=== PATIENT | male | born 1965 | race Caucasian/White ===

== ENCOUNTER 2017-11-13 16:18 | Inpatient (IN) | payer OTHER ==
[~2017-11-13] VITALS: Ht 180.3 cm; Wt 250.4 kg
[2017-12-18] VITALS (11 sets, daily range): BP systolic 102–135; BP diastolic 51–82; PULSE 52–76; TEMP 97.8–98
[2017-12-18] MEDS ORDERED: ABILIFY5 MG PO (06:10)
[2017-12-18] MEDS ORDERED: NORVASC2.5 MG PO (06:10)
[2017-12-18] MEDS ORDERED: VALIUM 2MG T2 MG/TAB PO (06:11)
[2017-12-18] MEDS ORDERED: SARAFEM10 MG PO (06:12)
[2017-12-18] MEDS ORDERED: FLONASEALLERGY NS (06:12)
[2017-12-18] MEDS ORDERED: ATARAX50 MG PO (06:13)
[2017-12-18] MEDS ORDERED: CLARITIN REDITA10 MG PO (06:14)
[2017-12-18] MEDS ORDERED: HYSINGLA20 PO (06:14)
[2017-12-18] MEDS ORDERED: PRIL40 PO (06:15)
[2017-12-18] MEDS ORDERED: PROZAC 10MG10 MG PO (06:15)
[2017-12-18] MEDS ORDERED: AMBIEN CR6.25 MG PO (06:16)
[2017-12-18] MEDS ORDERED: TOPAMAX15 MG PO (06:16)
[2017-12-18] MEDS ORDERED: CARAFATE 1GM1 G PO (06:17)
[2017-12-19 03:44] VITALS: BP 115/76; PULSE 66; TEMP 98
[2017-12-19 07:00] VITALS: BP 119/66; PULSE 66; TEMP 97.7
[2017-12-19 07:18] LABS: HEMOGLOBIN 11.8 g/dl (13.5-18.0)
[2017-12-19 07:19] LABS: HEMATOCRIT 35.9 % (42.0-52.0)
[2017-12-19] MEDS ORDERED: TOPAMAX200 MG PO (08:05)
[2017-12-19 11:12] VITALS: BP 126/73; PULSE 78; TEMP 98.7
[2017-12-19 15:44] VITALS: BP 123/73; PULSE 77; TEMP 99.1
== END 2017-12-19 17:10 | disposition home or self-care (01) | DRG 470 ==
LOC: JCC 12-18 05:14
PROVIDERS: Orthopaedic Surgery Sports Medicine
PROC: 0SRC0J9 Replacement of Right Knee Joint with Synthetic Substitute, Cemented, Open Approach (ICD-10-PCS; principal; 2017-12-18 07:30)
DX: M17.11 Unilateral primary osteoarthritis, right knee (principal); I25.10 Atherosclerotic heart disease of native coronary artery without angina pectoris; I11.0 Hypertensive heart disease with heart failure; M06.9 Rheumatoid arthritis, unspecified
CPT/HCPCS: A9284; C1713; C1776; J0690; J1100; J1170; J2250; J2405; J2704; J2795; J3010; J7120

== ENCOUNTER → 2017-12-05 | Outpatient (CLI) | payer OTHER | LOC: COL.LAB 10:15 | DX: Z01.812 Encounter for preprocedural laboratory examination (principal) ==

== ENCOUNTER 2018-02-21 10:52 | Day surgery (SDC) | payer OTHER ==
[~2018-02-21] VITALS: Ht 180.3 cm; Wt 118.9 kg
[~2018-02-21 10:52] MED LIST: ABILIFY 10MG TA10 MG PO; AMBIEN CR6.25 MG PO; ATARAX50 MG PO; CARAFATE 1GM1 G PO; CLARITIN REDITA10 MG PO; FLONASEALLERGY NS; HYSINGLA20 PO; NORVASC 10MG10 MG PO; PRIL40 PO; PROZAC 20MG20 MG PO; SARAFEM10 MG PO; TOPAMAX15 MG PO; TOPAMAX200 MG PO; VALIUM 2MG T2 MG/TAB PO
[2018-02-21] MEDS ORDERED: VALIUM 2MG T2 MG/TAB PO (11:28)
[2018-02-21] MEDS ORDERED: FLOVENT DI50 MCG/Act IH (11:29)
[2018-02-21 11:31] VITALS: BP 128/89; PULSE 80; TEMP 98.4
[2018-02-21] MEDS ORDERED: NORCO 325 MG-51 TAB PO (11:31)
[2018-02-21] MEDS ORDERED: AMBIEN 10MG10 MG PO (11:34)
[2018-02-21] MEDS ORDERED: COLACE 100100 MG/CAP PO (15:40)
[2018-02-21] MEDS ORDERED: NORCO 325 MG-7.1 TAB PO (15:40)
[2018-02-21 15:45] VITALS: BP 124/88; PULSE 94; TEMP 97.1
[2018-02-21 16:00] VITALS: BP 124/91; PULSE 89
[2018-02-21 16:15] VITALS: BP 124/70; PULSE 90
== END 2018-02-21 16:43 | disposition home or self-care (01) ==
LOC: SDCO 10:52
DX: K40.90 Unilateral inguinal hernia, without obstruction or gangrene, not specified as recurrent (principal); D17.6 Benign lipomatous neoplasm of spermatic cord; E78.5 Hyperlipidemia, unspecified; F32.9 Major depressive disorder, single episode, unspecified; I25.10 Atherosclerotic heart disease of native coronary artery without angina pectoris; J30.9 Allergic rhinitis, unspecified; M19.90 Unspecified osteoarthritis, unspecified site; R73.01 Impaired fasting glucose; E23.0 Hypopituitarism; E66.01 Morbid (severe) obesity due to excess calories; F41.0 Panic disorder [episodic paroxysmal anxiety]; I10 Essential (primary) hypertension; G47.30 Sleep apnea, unspecified; I25.2 Old myocardial infarction; K21.9 Gastro-esophageal reflux disease without esophagitis; F43.10 Post-traumatic stress disorder, unspecified; Z79.51 Long term (current) use of inhaled steroids; Z96.651 Presence of right artificial knee joint; Z88.8 Allergy status to other drugs, medicaments and biological substances; Z80.0 Family history of malignant neoplasm of digestive organs
CPT/HCPCS: A4314; C1781; J0690; J1100; J1885; J2405; J2704; J3010; J7120

== ENCOUNTER 2020-07-28 00:02 | Emergency (ER) | payer OTHER ==
[~2020-07-28] VITALS: Ht 180.3 cm; Wt 104.5 kg
[~2020-07-28 00:02] MED LIST changes: +AMBIEN 10MG10 MG PO; +COLACE 100100 MG/CAP PO; +FLOVENT DI50 MCG/Act IH; +NORCO 325 MG-51 TAB PO; +NORCO 325 MG-7.1 TAB PO
[2020-07-28 00:30] LABS: BASO % 0.4 % (0.0-2.0); EOS # 0.1 (0.0-0.7); EOS % 1.1 % (0-4.0); GRAN # 4.5 (1.4-6.5); GRAN % 61.7 % (42.2-75.2); HEMATOCRIT 41.1 % (42.0-52.0); HEMOGLOBIN 13.3 g/dl (13.5-18.0); LYMPH # 2.1 (1.2-3.4); MEAN CELL VOLUME 91 fl (80.0-100.0); MEAN CORPUSCULAR HEMOGLOBIN 29 pg (27.0-31.0); MEAN CORPUSCULAR HGB CONC 32 g/dl (33.0-37.0); MEAN PLATELET VOLUME 8.9 fl (7.4-10.4); MONO # 0.6 (0.1-0.6); MONO % 7.5 % (1.7-9.3); PLATELET COUNT 224 K/mm3 (130-400); RED BLOOD COUNT 4.53 M/mm3 (4.20-5.60)
[2020-07-28 00:46] LABS: ALANINE AMINOTRANSFERASE 18 U/L (4-49); ALBUMIN 3.8 gm/dL (3.5-5.0); ALKALINE PHOSPHATASE 106 U/L (50-136); ANION GAP 3 mmol/L (7-16); AST,SGOT 23 U/L (15-37); BILIRUBIN,TOTAL 0.2 mg/dL (0.0-1.0); BLOOD UREA NITROGEN 24 mg/dL (9-20); CALCIUM 9.6 mg/dL (8.4-10.2); CARBON DIOXIDE 29 mmol/L (22-30); CHLORIDE 107 mmol/L (98-107); CREATININE, serum 1.39 (0.66-1.25); GLUCOSE 79 mg/dL (74-106); SODIUM 138 mmol/L (137-145); TOTAL PROTEIN 6.6 gm/dL (6.4-8.2)
[2020-07-28 00:52] LABS: POTASSIUM 2.9 mmol/L (3.4-5.0)
[2020-07-28 00:59] LABS: TROPONIN-I < 0.012 ng/mL (0.000-0.035)
[2020-07-28 01:05] VITALS: TEMP 97.5
[2020-07-28 01:50] VITALS: BP 116/75; PULSE 65
== END 2020-07-28 01:58 | disposition home or self-care (01) ==
LOC: COL.ER 00:02
PROVIDERS: Emergency Medicine
DX: I95.1 Orthostatic hypotension (principal); I25.10 Atherosclerotic heart disease of native coronary artery without angina pectoris; I10 Essential (primary) hypertension; F31.9 Bipolar disorder, unspecified; F43.10 Post-traumatic stress disorder, unspecified; Z98.84 Bariatric surgery status; Z88.8 Allergy status to other drugs, medicaments and biological substances; Z79.899 Other long term (current) drug therapy
CPT/HCPCS: J7030

== ENCOUNTER 2020-10-19 20:34 | Emergency (ER) | payer OTHER ==
[~2020-10-19] VITALS: Ht 180.3 cm; Wt 134.1 kg
[2020-10-19 21:13] LABS: BASO % 0.4 % (0.0-2.0); EOS # 0.1 (0.0-0.7); EOS % 1.6 % (0-4.0); GRAN # 3.1 (1.4-6.5); GRAN % 61.6 % (42.2-75.2); HEMATOCRIT 37.1 % (42.0-52.0); HEMOGLOBIN 12.3 g/dl (13.5-18.0); LYMPH # 1.4 (1.2-3.4); MEAN CELL VOLUME 89 fl (80.0-100.0); MEAN CORPUSCULAR HEMOGLOBIN 29 pg (27.0-31.0); MEAN CORPUSCULAR HGB CONC 33 g/dl (33.0-37.0); MEAN PLATELET VOLUME 8.8 fl (7.4-10.4); MONO # 0.4 (0.1-0.6); PLATELET COUNT 272 K/mm3 (130-400); RED BLOOD COUNT 4.19 M/mm3 (4.20-5.60); REDCELL DISTRIBUTION WIDTH-CV 15.7 % (11.5-14.5)
[2020-10-19 21:27] LABS: BILIRUBIN,TOTAL 0.3 mg/dL (0.0-1.0); C-REACTIVE PROTEIN 3.9 mg/dL (0.0-0.9); CALCIUM 9.3 mg/dL (8.4-10.2); CREATININE, serum 1.02 (0.66-1.25); POTASSIUM 3.3 mmol/L (3.4-5.0); TOTAL PROTEIN 7.3 gm/dL (6.4-8.2)
[2020-10-19] MEDS ORDERED: DOXYCYCLINE 10100 MG PO (21:55)
[2020-10-19 22:02] VITALS: BP 141/90; PULSE 86; TEMP 98.4
== END 2020-10-19 22:03 | disposition home or self-care (01) ==
LOC: COL.ER 20:34
PROVIDERS: Nurse Practitioner
DX: L03.116 Cellulitis of left lower limb (principal); T81.49XA Infection following a procedure, other surgical site, initial encounter; I10 Essential (primary) hypertension; Z79.899 Other long term (current) drug therapy
CPT/HCPCS: J0696

== ENCOUNTER 2020-11-11 10:40 | Emergency (ER) | payer OTHER ==
[~2020-11-11] VITALS: Ht 180.3 cm; Wt 134.1 kg
[~2020-11-11 10:40] MED LIST changes: +DOXYCYCLINE 10100 MG PO
[2020-11-11 10:46] VITALS: TEMP 98.9
[2020-11-11] MEDS ORDERED: NORCO 325 MG-51 TAB PO (12:50)
[2020-11-11 13:30] VITALS: BP 140/100; PULSE 88
== END 2020-11-11 13:34 | disposition home or self-care (01) ==
LOC: COL.ER 10:40
DX: S93.602A Unspecified sprain of left foot, initial encounter (principal); S70.02XA Contusion of left hip, initial encounter; I10 Essential (primary) hypertension; E11.9 Type 2 diabetes mellitus without complications; I25.10 Atherosclerotic heart disease of native coronary artery without angina pectoris; Z79.899 Other long term (current) drug therapy; W18.30XA Fall on same level, unspecified, initial encounter
CPT/HCPCS: J2360

== ENCOUNTER 2021-02-25 14:11 | Emergency (ER) | payer OTHER ==
[~2021-02-25] VITALS: Ht 180.3 cm; Wt 129.5 kg
[2021-02-25 14:45] VITALS: TEMP 98.6
[2021-02-25 16:55] LABS: BASO % 0.2 % (0.0-2.0); EOS # 0.1 K/mm3 (0.0-0.7); EOS % 1.8 % (0.0-4.0); GRAN # 3.8 K/mm3 (1.4-6.5); GRAN % 64.3 % (42.2-75.2); HEMOGLOBIN 11.8 g/dl (13.5-18.0); LYMPH # 1.4 K/mm3 (1.2-3.4); LYMPH % 23.3 % (20.0-51.0); MEAN CELL VOLUME 92 fl (80.0-100.0); MEAN CORPUSCULAR HEMOGLOBIN 30 pg (27-31); MEAN CORPUSCULAR HGB CONC 32 g/dl (33.0-37.0); MEAN PLATELET VOLUME 8.9 fl (7.4-10.4); MONO # 0.6 K/mm3 (0.1-0.6); MONO % 10.1 % (1.7-9.3); PLATELET COUNT 223 K/mm3 (130-400); RED BLOOD COUNT 3.99 M/mm3 (4.20-5.60); REDCELL DISTRIBUTION WIDTH-CV 14.4 % (11.5-14.5)
[2021-02-25 16:56] LABS: HEMATOCRIT 36.8 % (42.0-52.0)
[2021-02-25 17:06] LABS: ALBUMIN 3.7 gm/dL (3.5-5.0); BILIRUBIN,TOTAL 0.3 mg/dL (0.2-1.2); CALCIUM 8.7 mg/dL (8.4-10.2); CREATININE, serum 1.04 mg/dL (0.72-1.25); POTASSIUM 3.9 mmol/L (3.5-4.5); TOTAL PROTEIN 6.3 gm/dL (6.2-8.1)
[2021-02-25 18:10] VITALS: BP 130/61; PULSE 88
== END 2021-02-25 18:10 | disposition home or self-care (01) ==
LOC: COL.ER 14:11
PROVIDERS: Nurse Practitioner
DX: R22.42 Localized swelling, mass and lump, left lower limb (principal); F41.9 Anxiety disorder, unspecified; G47.00 Insomnia, unspecified; Z88.6 Allergy status to analgesic agent; Z79.899 Other long term (current) drug therapy